=== PATIENT | female | born 1995 | race African-American/Black ===

== ENCOUNTER 2016-12-27 16:37 | Emergency (ER) | payer BC, OTHER ==
[~2016-12-27] VITALS: Ht 157.5 cm; Wt 45.8 kg
[~2016-12-27 16:37] MED LIST: CLEOCIN HCL150 MG PO; ULTRAM 50MG TAB50 MG PO
[2016-12-27 16:53] LABS: ICTOTEST (BILI CONFIRMATORY) Negative (Negative); URINE BILIRUBIN 1+ (Negative); URINE BLOOD 3+ (Negative); URINE COLOR YELLOW; URINE GLUCOSE-RANDOM* NEGATIVE (Negative); URINE KETONES NEGATIVE (Negative); URINE NITRITE NEGATIVE (Negative); URINE PROTEIN (DIPSTICK) 1+ (Negative); URINE SPECIFIC GRAVITY >= 1.030 (1.003-1.035); URINE UROBILINOGEN 0.2 E.U./dl (0.2-1.0)
[2016-12-27 17:00] LABS: SQUAMOUS 4-10 Moderate /LPF (0-3)
[2016-12-27 17:01] LABS: BACTERIA 1-9 Few /HPF (None Seen); CASTS None Seen /LPF (None Seen); CRYSTALS None Seen /LPF (None Seen); URINE RBC >20 Many /HPF (0-2); URINE WBC 0-5 Rare /HPF (0-5)
[2016-12-27 19:28] VITALS: BP 114/78
[2016-12-28 17:12] LABS: CHLAMYDIA TRACHOMATIS-PCR Negative (Negative); NEISSERIA GONORRHEA-PCR Negative (Negative)
== END 2016-12-27 19:30 | disposition home or self-care (01) ==
LOC: ER 16:37
PROVIDERS: Physician Assistant
DX: O20.0 Threatened abortion (principal); Z3A.00 Weeks of gestation of pregnancy not specified

== ENCOUNTER 2016-12-30 17:25 | Emergency (ER) | payer BC, OTHER ==
[~2016-12-30] VITALS: Ht 157.5 cm; Wt 45.8 kg
[2016-12-30 18:08] LABS: ABSOLUTE NEUTROPHILS 1.4 thou/uL (1.4-8.2); BASOPHILS 1.1 % (0.0-2.0); EOSINOPHILS 3.2 % (0.0-3.0); HEMATOCRIT 33.1 % (37.0-47.0); HEMOGLOBIN 10.3 gm/dL (12.0-15.0); MCH 22.4 pg (26.0-34.0); MCV 72.2 fL (80.0-100.0); MONOCYTES 9.1 % (1.0-8.0); PLATELET COUNT 371 thou/uL (150-400); POLYS 42.6 % (36.0-66.0); RBC 4.58 mil/uL (4.20-5.00); RDW 17.9 % (10.5-14.5); WBC 3.2 thou/uL (4.0-11.0)
[2016-12-30 18:16] LABS: MANUAL DIFF NO
[2016-12-30 18:24] LABS: CALCIUM 9.5 mg/dL (8.5-10.1); CREATININE 0.8 mg/dL (0.6-1.0); POTASSIUM 3.6 mmol/L (3.5-5.1)
[2016-12-30 18:39] LABS: HYPOCHROMASIA 2+; OVALOCYTES 1+; POLYCHROMASIA 1+
[2016-12-30 19:15] VITALS: BP 122/68
== END 2016-12-30 19:59 | disposition home or self-care (01) ==
LOC: ER 17:25
PROVIDERS: Emergency Medicine
DX: O03.9 Complete or unspecified spontaneous abortion without complication (principal)

== ENCOUNTER 2017-02-11 17:37 | Emergency (ER) | payer BC, OTHER ==
[~2017-02-11] VITALS: Ht 157.5 cm; Wt 49.4 kg
[2017-02-11 17:41] VITALS: BP 130/72
[2017-02-11 17:59] LABS: URINE BILIRUBIN NEGATIVE (Negative); URINE BLOOD NEGATIVE (Negative); URINE GLUCOSE-RANDOM* NEGATIVE (Negative); URINE KETONES NEGATIVE (Negative); URINE NITRITE NEGATIVE (Negative); URINE PROTEIN (DIPSTICK) NEGATIVE (Negative); URINE SPECIFIC GRAVITY <= 1.005 (1.003-1.035); URINE UROBILINOGEN 0.2 E.U./dl (0.2-1.0)
[2017-02-11 18:02] LABS: URINE COLOR COLORLESS
== END 2017-02-11 18:18 | disposition home or self-care (01) ==
LOC: ER 17:37
PROVIDERS: Nurse Practitioner Family
DX: Z32.01 Encounter for pregnancy test, result positive (principal); R51 Headache

== ENCOUNTER 2017-06-03 12:40 | Emergency (ER) | payer BC, OTHER ==
[~2017-06-03] VITALS: Ht 157.5 cm; Wt 52.2 kg
[2017-06-03 13:55] LABS: ABSOLUTE NEUTROPHILS 6.3 thou/uL (1.4-8.2); BASOPHILS 0.3 % (0.0-2.0); EOSINOPHILS 1.8 % (0.0-3.0); HEMATOCRIT 23.7 % (37.0-47.0); HEMOGLOBIN 7.6 gm/dL (12.0-15.0); LYMPHOCYTES 13.2 % (24.0-44.0); MCH 23.9 pg (26.0-34.0); MCHC 31.9 g/dL (28.0-37.0); MCV 75.1 fL (80.0-100.0); MONOCYTES 7.2 % (1.0-8.0); PLATELET COUNT 318 thou/uL (150-400); POLYS 77.5 % (36.0-66.0); RBC 3.16 mil/uL (4.20-5.00); RDW 15.1 % (10.5-14.5); WBC 8.2 thou/uL (4.0-11.0)
[2017-06-03 14:04] LABS: CALCIUM 8.8 mg/dL (8.5-10.1); CREATININE 0.5 mg/dL (0.6-1.0); POTASSIUM 3.6 mmol/L (3.5-5.1)
[2017-06-03 14:10] LABS: ALBUMIN 2.9 g/dL (3.4-5.0); TOTAL BILIRUBIN 0.3 mg/dL (<0.1-1.0); TOTAL PROTEIN 6.8 g/dL (6.4-8.2)
== END 2017-06-03 16:47 | disposition home or self-care (01) ==
LOC: ER 12:40
PROVIDERS: Emergency Medicine
DX: O26.892 Other specified pregnancy related conditions, second trimester (principal); R10.9 Unspecified abdominal pain; Z3A.22 22 weeks gestation of pregnancy

== ENCOUNTER 2017-08-28 11:43 | Emergency (ER) | payer BC, OTHER ==
[~2017-08-28] VITALS: Ht 157.5 cm; Wt 59.0 kg
[2017-08-28 12:43] LABS: HEMATOCRIT 21.7 % (37.0-47.0); HEMOGLOBIN 6.6 gm/dL (12.0-15.0); MCH 20.1 pg (26.0-34.0); MCHC 30.5 g/dL (28.0-37.0); MCV 65.8 fL (80.0-100.0); PLATELET COUNT 308 thou/uL (150-400); RBC 3.31 mil/uL (4.20-5.00)
[2017-08-28 12:52] LABS: CALCIUM 8.6 mg/dL (8.5-10.1); CREATININE 0.5 mg/dL (0.6-1.0); POTASSIUM 3.5 mmol/L (3.5-5.1)
[2017-08-28 13:10] LABS: ABSOLUTE NEUTROPHILS 8.1 thou/uL (1.4-8.2); ANISOCYTOSIS 2+; HYPOCHROMASIA 2+; MICROCYTES 2+; PLATELET ESTIMATE NORMAL; POLYCHROMASIA 1+
== END 2017-08-28 18:57 | disposition home or self-care (01) ==
LOC: ER 11:43
PROVIDERS: Physician Assistant
DX: O99.013 Anemia complicating pregnancy, third trimester (principal); Z3A.35 35 weeks gestation of pregnancy

== ENCOUNTER 2017-08-31 09:51 | Emergency (ER) | payer BC, OTHER ==
[~2017-08-31] VITALS: Ht 157.5 cm; Wt 59.0 kg
[2017-08-31 10:51] LABS: HEMATOCRIT 25.5 % (37.0-47.0); HEMOGLOBIN 7.9 gm/dL (12.0-15.0)
[2017-08-31 11:20] VITALS: BP 107/67
== END 2017-08-31 11:59 | disposition home or self-care (01) ==
LOC: ER 09:51
PROVIDERS: Emergency Medicine
DX: O26.893 Other specified pregnancy related conditions, third trimester (principal); Z3A.35 35 weeks gestation of pregnancy; R53.1 Weakness

== ENCOUNTER 2020-09-14 17:35 | Emergency (ER) | payer BC, OTHER ==
[~2020-09-14] VITALS: Ht 157.5 cm; Wt 65.3 kg
[2020-09-14 18:19] LABS: ABSOLUTE NEUTROPHILS 2.2 thou/uL (1.4-8.2); BASOPHILS 0.6 % (0.0-2.0); EOSINOPHILS 0.5 % (0.0-3.0); HEMATOCRIT 32.2 % (37.0-47.0); HEMOGLOBIN 10.7 gm/dL (12.0-15.0); LYMPHOCYTES 18.1 % (24.0-44.0); MCH 28.1 pg (26.0-34.0); MCHC 33.1 g/dL (28.0-37.0); MCV 84.8 fL (80.0-100.0); MONOCYTES 14.7 % (1.0-8.0); PLATELET COUNT 271 thou/uL (150-400); POLYS 66.1 % (36.0-66.0); RDW 13.7 % (10.5-14.5); WBC 3.3 thou/uL (4.0-11.0)
[2020-09-14 18:25] LABS: CALCIUM 8.7 mg/dL (8.5-10.1); CREATININE 0.6 mg/dL (0.6-1.0); POTASSIUM 3.3 mmol/L (3.5-5.1)
[2020-09-14 18:53] VITALS: BP 116/66
== END 2020-09-14 18:53 | disposition home or self-care (01) ==
LOC: ER 17:35
PROVIDERS: Emergency Medicine
DX: J06.9 Acute upper respiratory infection, unspecified (principal); F17.210 Nicotine dependence, cigarettes, uncomplicated; O99.511 Diseases of the respiratory system complicating pregnancy, first trimester; Z3A.11 11 weeks gestation of pregnancy